=== PATIENT | male | born 1980 | race Hispanic/Latino ===

== ENCOUNTER 2018-06-09 23:19 | Observation (INO) | payer SELFPAY ==
--- OUTSIDE RECORDS SUMMARY | 2018-06-09 23:21 | XMS REPORT | Clinical Summary ---
:1980 Author Organization [facility] Address [address] [place] [address] Care Team Providers Name Role Phone Asked, No Pcp Primary Care Provider Unavailable Allergies No Known Allergies Medications Medication Sig Dispensed Refills Start Date End Date Status budesonide (RHINOCORT 1 spray into 1 Bottle 3 05/21/2018 06/20/2018 Active ALLERGY) 32 each nostril mcg/actuation nasal daily for 30 spray days. oxymetazoline (AFRIN) 2 sprays into 10 mL 0 05/21/2018 05/24/2018 0.05 % nasal spray each nostril 2 (two) times a day for 3 days. Active Problems Problem Noted Date Snoring 05/21/2018 Nasal obstruction 05/21/2018 Obstructive sleep apnea 05/21/2018 Encounters Date Type Specialty Care Team Description 05/21/2018 Office Visit Otolaryngology Vineet Monte MD Snoring ( Primary Dx); Nasal obstruction; Obstructive sleep apnea after 06/08/2017 Social History Tobacco Use Types Packs/Day Years Used Date Never Smoker Smokeless Tobacco: Never Used Alcohol Use Drinks/Week oz/Week Comments Yes Sex Assigned at Date Recorded Not on file Job Start Date Occupation Industry Not on file Not on file Not on file Travel History Travel Start Travel End No recent travel history available. Last Filed Vital Signs Vital Sign Reading Time Taken Blood Pressure 123/85 05/21/2018 10:13 AM [employer] Pulse 94 05/21/2018 10:13 AM [employer] Temperature - - Respiratory Rate - - Oxygen Saturation - - Inhaled Oxygen Concentration - - Weight 125 kg (275 lb 6.4 oz) 05/21/2018 10:13 AM [employer] Height 167.6 cm (5' 6") 05/21/2018 10:13 AM [employer] Body Mass Index 44.45 05/21/2018 10:13 AM [employer] Plan of Treatment Health Maintenance Due Date Last Done Comments INFLUENZA VACCINE 11/07/2017 Results Not on fileafter 06/08/2017 Advance Directives Patient has advance care planning documents on file. For more information, please contact:Esau Steele[address] [facility] [place] [address]
[2018-06-10] MEDS ORDERED: MAGNE/ALUM HYDROXD 30 ML UCUP ONE (00:38)
[2018-06-10] MEDS ORDERED: LIDOCAINE VISCOUS 2% SOLN 15 ML UDC ONE (00:38)
[2018-06-10] MEDS ORDERED: ONDANSETRON 4 MG/2 ML VIAL ONE (00:38)
[2018-06-10] MEDS ORDERED: FAMOTIDINE 20 MG/2 ML VIAL IV ONE (00:38)
[2018-06-10] MEDS ORDERED: NA CHLORIDE 0.9% 1,000 ML ONE ×3 (00:39→04:21)
[2018-06-10 00:56] LABS: Absolute Lymphocytes (CBC) 0.7 K/uL (0.7-4.9); Absolute Monocytes 1.1 K/uL (0.1-1.3); Absolute Neutrophil 19.2 K/uL (1.8-8.0); Basophils % 0.1 % (0-1.3); Eosinophils % 0.4 % (0-4.4); Lymphocytes % 3.4 % (15.3-44.8); MPV 10.2 fL (7.6-11.3); Monocytes % 5.1 % (3.3-12.3); RBC Red Blood Cell Count 6.55 M/uL (4.33-5.43)
[2018-06-10 01:07] LABS: Bilirubin Direct 0.1 mg/dL (0-0.2); Bilirubin Total 0.4 mg/dL (0.2-1.0); Potassium 3.6 mmol/L (3.5-5.1); Protein, Total 8.5 g/dL (6.4-8.2)
[2018-06-10 03:11] LABS: Blood Morphology Comment NOT SEEN (NOT SEEN); Platelet Estimate ADEQ
--- NOTE | 2018-06-10 03:40 | EDPHYS ---
Physician Documentation [facility] Name: Reg Silva Age: 37 yrs Sex: Male : 1980 Arrival Date: 06/09/2018 Time: 23:19 Bed 15 Private MD: ED Physician Kvng Wang HPI: 06/10 00:05 This 37 yrs old Male presents to ER via Ambulatory with complaints of cp Abdominal Pain, Nausea/Vomiting. 00:05 The patient presents with abdominal pain in the epigastric area. Onset: The cp symptoms/episode began/occurred suddenly, today. The symptoms do not radiate. The symptoms are described as constant. Pain started shortly after eating tonight. 00:05 Associated signs and symptoms: Pertinent positives: 4 episodes of vomiting and 3 cp episodes of diarrhea, Pertinent negatives: blood in stools, fever. Historical: - Allergies: 06/09 23:41 No Known Allergies; jd3 - Home Meds: 23:41 None [Active]; jd3 - PMHx: 23:41 Sleep Apnea; jd3 - PSHx: 23:41 None; jd3 - Immunization history:: Adult Immunizations up to date. - Social history:: Smoking status: Patient/guardian denies using tobacco. - Ebola Screening: : Patient negative for fever greater than or equal to 101.5 degrees Fahrenheit, and additional compatible Ebola Virus Disease symptoms. ROS: 06/10 00:10 Constitutional: Negative for body aches, chills, fever, poor PO intake. cp 00:10 Eyes: Negative for injury, pain, redness, and discharge. cp 00:10 ENT: Negative for drainage from ear(s), ear pain, sore throat, difficulty swallowing, difficulty handling secretions. 00:10 Cardiovascular: Negative for chest pain, edema, palpitations. 00:10 Respiratory: Negative for cough, shortness of breath, wheezing. 00:10 Abdomen/GI: Positive for abdominal pain, nausea and vomiting, diarrhea, Negative for constipation, hematemesis, black/tarry stool, rectal bleeding. 00:10 Back: Negative for radiated pain. 00:10 : Negative for urinary symptoms, testicular pain 00:10 Skin: Negative for cellulitis, rash. 00:10 Neuro: Negative for altered mental status, headache, weakness. 00:10 All other systems are negative. Exam: 00:15 Constitutional: The patient appears in no acute distress, alert, awake, non-toxic, well cp developed, well nourished. 00:15 Head/Face: Normocephalic, atraumatic. cp 00:15 Eyes: Periorbital structures: appear normal, Conjunctiva: normal, no exudate, no injection, Sclera: no appreciated abnormality, Lids and lashes: appear normal, bilaterally. 00:15 ENT: External ear(s): are unremarkable, Nose: is normal, Mouth: Lips: moist, Oral mucosa: pink and intact, moist, Posterior pharynx: is normal, airway is patent, no erythema, no exudate. 00:15 Chest/axilla: Inspection: normal, Palpation: is normal, no crepitus, no tenderness. 00:15 Cardiovascular: Rate: tachycardic, Rhythm: regular. 00:15 Respiratory: the patient does not display signs of respiratory distress, Respirations: normal, no use of accessory muscles, no retractions, no splinting, no tachypnea, labored breathing, is not present, Breath sounds: are clear throughout, no decreased breath sounds, no stridor, no wheezing. 00:15 Abdomen/GI: Inspection: obese Bowel sounds: active, all quadrants, Palpation: soft, in all quadrants, mild abdominal tenderness, in the right upper quadrant, moderate abdominal tenderness, in the epigastric area, rebound tenderness, is not appreciated, voluntary guarding, is elicited in the epigastric area. 00:15 Back: pain, is absent, ROM is normal. 00:15 Skin: cellulitis, is not appreciated, no rash present. Vital Signs: 06/09 23:47 BP 128 / 88; Pulse 107; Resp 19 S; Temp 97.5(O); Pulse Ox 94% on R/A; Weight 129.27 kg jd3 (R); Height 5 ft. 6 in. (167.64 cm) (R); Pain 10/10; 06/10 00:40 BP 115 / 88; Pulse 117; Resp 18 S; Pulse Ox 97% on R/A; jd3 01:41 BP 97 / 78; Pulse 106; Resp 17 S; Pulse Ox 97% on R/A; jd3 02:42 BP 110 / 84; Pulse 108; Resp 15 S; Pulse Ox 95% on R/A; jd3 04:45 BP 132 / 89; Pulse 101; Resp 17 S; Pulse Ox 99% on R/A; jd3 07:45 BP 127 / 74; Pulse 96; Resp 16; Temp 98.0(O); Pulse Ox 98% on R/A; Pain 0/10; ls4 06/09 23:47 Body Mass Index 46.00 (129.27 kg, 167.64 cm) jd3 MDM: 06/09 23:35 Patient medically screened. cp 06/10 00:25 Differential diagnosis: appendicitis, bowel obstruction, cholecystitis, Cholelithiasis, cp gastritis, pancreatitis, Peptic Ulcer Disease, Perf. Duodenal Ulcer, Perf. Gastric Ulcer. 03:40 Data reviewed: vital signs, nurses notes. selena 06/10 00:03 Order name: Basic Metabolic Panel; Complete Time: 01:19 cp 06/10 01:19 Interpretation: Normal except: GLUC 160; GFR 67. cp 06/10 00:03 Order name: CBC with Diff; Complete Time: 03:32 cp 06/10 01:20 Interpretation: Normal except: WBC 21.2; RBC 6.55; HCT 53.0; MCH 26.3; SHAYNE% 91.0; LYM% cp 3.4; NEUT A 19.2. 06/10 00:03 Order name: Creatinine for Radiology; Complete Time: 01:19 cp 06/10 00:03 Order name: Hepatic Function; Complete Time: 01:19 cp 06/10 01:19 Interpretation: Normal except: ALK 131; TP 8.5; GLOB 4.5; A/G 0.9. cp 06/10 00:03 Order name: Lipase; Complete Time: 01:19 cp 06/10 01:20 Order name: Manual Differential; Complete Time: 03:32 EDMS 06/10 04:43 Order name: CBC with Automated Diff EDMS 06/10 04:43 Order name: CBC with Automated Diff EDMS 06/10 04:43 Order name: Comprehensive Metabolic Panel EDMS 06/10 04:43 Order name: Comprehensive Metabolic Panel EDMS 06/10 04:43 Order name: Lactate EDMS 06/10 04:43 Order name: Lactate EDMS 06/10 04:43 Order name: Magnesium EDMS 06/10 04:43 Order name: Magnesium EDMS 06/10 00:03 Order name: CT Abd/Pelvis - W/Contrast: no oral contrast cp 06/10 04:43 Order name: Phosphorus EDMS 06/10 04:43 Order name: Phosphorus EDMS 06/10 04:43 Order name: Protime (+INR) EDMS 06/10 04:43 Order name: Protime (+INR) EDMS 06/10 04:43 Order name: PTT, Activated Partial Thromb EDMS 06/10 04:43 Order name: PTT, Activated Partial Thromb EDMS 06/10 04:44 Order name: Gamma Glutamyl Transpeptidase EDMS 06/10 04:44 Order name: Lactate EDMS 06/10 04:45 Order name: Urine Dipstick--Ancillary (enter results); Complete Time: 06:34 mt 06/10 04:47 Order name: Abdomen Exam Limited EDMS 06/10 00:03 Order name: IV Saline Lock; Complete Time: 00:38 cp 06/10 00:03 Order name: Labs collected and sent; Complete Time: 00:38 cp 06/10 00:03 Order name: Urine Dipstick-Ancillary (obtain specimen); Complete Time: 04:44 cp 06/10 04:43 Order name: CONS Physician Consult EDMS 06/10 04:43 Order name: NPO EDMS Administered Medications: 00:37 Drug: GI Cocktail without - (Maalox Suspension 30 ml, Lidocaine Liquid 2 % 15 jd3 ml) Route: PO; 04:58 Follow up: Response: No adverse reaction jd3 00:38 Drug: Pepcid 20 mg Route: IVP; Site: right antecubital; jd3 04:58 Follow up: Response: No adverse reaction jd3 00:38 Drug: Zofran 4 mg Route: IVP; Site: right antecubital; jd3 04:59 Follow up: Response: No adverse reaction jd3 00:38 Drug: NS 0.9% 1000 ml Route: IV; Rate: 1 bolus; Site: right antecubital; jd3 04:22 Follow up: Response: No adverse reaction; IV Status: Completed infusion; IV Intake: rr5 1000ml 02:48 Drug: NS 0.9% 1000 ml Route: IV; Rate: 1 bolus; Site: right antecubital; jd3 05:03 Follow up: Response: No adverse reaction; IV Status: Completed infusion jd3 04:21 Drug: Flagyl 500 mg Volume: 100 ml; Route: IVPB; Rate: 200 ml/hr; Infused Over: 30 rr5 mins; Site: right antecubital; 05:03 Follow up: Response: No adverse reaction; IV Status: Completed infusion jd3 04:58 Drug: Cipro 400 mg Volume: 200 ml; Route: IVPB; Infused Over: 60 mins; Site: right jd3 antecubital; 05:04 Follow up: Response: No adverse reaction; IV Status: Infusion continued upon admission jd3 04:58 Drug: NS 0.9% 1000 ml Route: IV; Rate: 125 ml/hr; Site: right antecubital; jd3 05:03 Follow up: Response: No adverse reaction; IV Status: Infusion continued upon admission jd3 Disposition: 03:39 Co-signature as Attending Physician, Kvng Wang MD I agree with the assessment and selena plan of care. Disposition: 06/10/18 03:39 Hospitalization ordered by Ronan Levy for Observation. Preliminary diagnosis are Abdominal tenderness, Vomiting, Elevated white blood cell count, Bandemia, Cholelithiasis, Left sided colitis - ENTEROCOLITIS. - Bed requested for Telemetry/MedSurg (observation). - Status is Observation. ls4 - Condition is Stable. - Problem is new. - Symptoms have improved. UTI on Admission? No Signatures: Dispatcher [employer] Kate Quintanilla RN RN mw Anderson, Corey, MD MD cha Page, Corey, PA PA cp Davies, Jonathon, RN RN jd3 Sherie Link RN RN ls4 Michael Bull RN RN rr5 Corrections: (The following items were deleted from the chart) 01:20 01:20 Normal except: WBC 21.2; RBC 6.55; HCT 53.0; MCH 26.3; SHAYNE% 91.0; LYM% 3.4. cp cp 03:43 03:39 Hospitalization Ordered by Ronan Levy MD for Observation. Preliminary selena diagnosis is Abdominal tenderness; Vomiting; Elevated white blood cell count; Bandemia. Bed requested for Telemetry/MedSurg (observation). Status is Observation. Condition is Stable. Problem is new. Symptoms have improved. UTI on Admission? No. selena 05:08 03:43 06/10/2018 03:39 Hospitalization Ordered by Ronan Levy MD for Observation. sanchez Preliminary diagnosis is Abdominal tenderness; Vomiting; Elevated white blood cell count; Bandemia; Cholelithiasis; Left sided colitis - ENTEROCOLITIS. Bed requested for Telemetry/MedSurg (observation). Status is Observation. Condition is Stable. Problem is new. Symptoms have improved. UTI on Admission? No. selena 07:50 05:08 06/10/2018 03:39 Hospitalization Ordered by Ronan Levy MD for Observation. ls4 Preliminary diagnosis is Abdominal tenderness; Vomiting; Elevated white blood cell count; Bandemia; Cholelithiasis; Left sided colitis - ENTEROCOLITIS. Bed requested for Telemetry/MedSurg (observation). Status is Observation. Condition is Stable. Problem is new. Symptoms have improved. UTI on Admission? No. mw 08:16 07:50 06/10/2018 03:39 Hospitalization Ordered by Ronan Levy MD for Observation. ls4 Preliminary diagnosis is Abdominal tenderness; Vomiting; Elevated white blood cell count; Bandemia; Cholelithiasis; Left sided colitis - ENTEROCOLITIS. Bed requested for Telemetry/MedSurg (observation). Status is Observation. Condition is Stable. Problem is new. Symptoms have improved. UTI on Admission? No. ls4 06/11 01:18 06/10 00:05 Associated signs and symptoms: Pertinent positives: nausea, vomiting, 1 cp episode of diarrhea, Pertinent negatives: blood in stools, constipation, fever, vomiting blood, cp
--- NOTE | 2018-06-10 03:40 | ER ---
Nurse's Notes [facility] Name: Reg Silva Age: 37 yrs Sex: Male : 1980 Arrival Date: 06/09/2018 Time: 23:19 Bed 15 Private MD: Diagnosis: Abdominal tenderness;Vomiting;Elevated white blood cell count;Bandemia;Cholelithiasis;Left sided colitis-ENTEROCOLITIS Presentation: 06/09 23:39 Presenting complaint: Patient states: "My stomach hurts and I started throwing up jd3 around 2200.". Transition of care: patient was not received from another setting of care. Onset of symptoms was June 09, 2018. Risk Assessment: Do you want to hurt yourself or someone else? Patient reports no desire to harm self or others. Initial Sepsis Screen: Does the patient meet any 2 criteria? No. Patient's initial sepsis screen is negative. Does the patient have a suspected source of infection? No. Patient's initial sepsis screen is negative. Care prior to arrival: None. 23:39 Method Of Arrival: Ambulatory jd3 23:39 Acuity: EMILIANO 3 jd3 Historical: - Allergies: 23:41 No Known Allergies; jd3 - Home Meds: 23:41 None [Active]; jd3 - PMHx: 23:41 Sleep Apnea; jd3 - PSHx: 23:41 None; jd3 - Immunization history:: Adult Immunizations up to date. - Social history:: Smoking status: Patient/guardian denies using tobacco. - Ebola Screening: : Patient negative for fever greater than or equal to 101.5 degrees Fahrenheit, and additional compatible Ebola Virus Disease symptoms. Screenin/04 00:39 Abuse screen: Denies threats or abuse. Nutritional screening: No deficits noted. jd3 Tuberculosis screening: No symptoms or risk factors identified. Fall Risk IV access (20 points). Ambulatory Aid- None/Bed Rest/Nurse Assist (0 pts). Gait- Normal/Bed Rest/Wheelchair (0 pts) Mental Status- Oriented to own ability (0 pts). Total Moser Fall Scale indicates No Risk (0-24 pts). Assessment: 06/09 23:48 General: Appears in no apparent distress. uncomfortable, Behavior is cooperative, jd3 appropriate for age, anxious. Pain: Complains of pain in abdomen Quality of pain is described as aching. Pain:. Neuro: Level of Consciousness is awake, alert, obeys commands, Oriented to person, place, time, situation, Appropriate for age. Cardiovascular: Capillary refill < 3 seconds Patient's skin is warm and dry. Respiratory: Airway is patent Respiratory effort is even, unlabored, Respiratory pattern is regular, symmetrical, Breath sounds are clear bilaterally. GI: Abdomen is round Bowel sounds present X 4 quads. Abd is soft and non tender X 4 quads. Reports nausea, vomiting. : No signs and/or symptoms were reported regarding the genitourinary system. EENT: No signs and/or symptoms were reported regarding the EENT system. Derm: Skin is intact, Skin is dry, Skin is normal, Skin temperature is warm. Musculoskeletal: Circulation, motion, and sensation intact. Range of motion: intact in all extremities. 06/10 00:40 Reassessment: Patient appears in no apparent distress at this time. No changes from jd3 previously documented assessment. Patient and/or family updated on plan of care and expected duration. Pain level reassessed. Patient is alert, oriented x 3, equal unlabored respirations, skin warm/dry/pink. 01:40 Reassessment: Patient appears in no apparent distress at this time. Patient and/or jd3 family updated on plan of care and expected duration. Pain level reassessed. Patient is alert, oriented x 3, equal unlabored respirations, skin warm/dry/pink. Patient states feeling better. 02:42 Reassessment: Patient appears in no apparent distress at this time. Patient and/or jd3 family updated on plan of care and expected duration. Pain level reassessed. Patient is alert, oriented x 3, equal unlabored respirations, skin warm/dry/pink. 04:44 Reassessment: Patient appears in no apparent distress at this time. Patient and/or jd3 family updated on plan of care and expected duration. Pain level reassessed. Patient is alert, oriented x 3, equal unlabored respirations, skin warm/dry/pink. 05:05 Reassessment: Patient appears in no apparent distress at this time. No changes from jd3 previously documented assessment. Patient and/or family updated on plan of care and expected duration. Pain level reassessed. Patient is alert, oriented x 3, equal unlabored respirations, skin warm/dry/pink. charting continued in [facility]. Vital Signs: 06/09 23:47 BP 128 / 88; Pulse 107; Resp 19 S; Temp 97.5(O); Pulse Ox 94% on R/A; Weight 129.27 kg jd3 (R); Height 5 ft. 6 in. (167.64 cm) (R); Pain 10/10; 06/10 00:40 BP 115 / 88; Pulse 117; Resp 18 S; Pulse Ox 97% on R/A; jd3 01:41 BP 97 / 78; Pulse 106; Resp 17 S; Pulse Ox 97% on R/A; jd3 02:42 BP 110 / 84; Pulse 108; Resp 15 S; Pulse Ox 95% on R/A; jd3 04:45 BP 132 / 89; Pulse 101; Resp 17 S; Pulse Ox 99% on R/A; jd3 07:45 BP 127 / 74; Pulse 96; Resp 16; Temp 98.0(O); Pulse Ox 98% on R/A; Pain 0/10; ls4 06/09 23:47 Body Mass Index 46.00 (129.27 kg, 167.64 cm) j ED Course: 06/09 23:19 Patient arrived in ED. am2 23:35 Kvng Sandoval PA is PHCP. cp 23:35 Kvng Wang MD is Attending Physician. cp 23:35 Yogi Stevenson RN is Primary Nurse. jd3 23:40 Triage completed. jd3 23:41 Arm band placed on. jd3 06/10 00:22 Inserted saline lock: 20 gauge in right antecubital area, using aseptic technique. jd3 Blood collected. 00:39 Patient has correct armband on for positive identification. Bed in low position. Call jd3 light in reach. Side rails up X 1. Adult w/ patient. 01:19 Notified Nurse Practitioner and/or Physician Fiscal Specialist of a critical lab result(s), wbc fc of 21.2. 02:[address] via wheelchair. kw1 02:45 CT completed. Patient tolerated procedure well. Patient moved back from CT. kw1 03:17 Notified Nurse Practitioner and/or Physician Fiscal Specialist of a critical lab result(s), 23% jd3 band count. 03:28 CT Abd/Pelvis - W/Contrast: no oral contrast In Process Unspecified. EDMS 03:34 Ronan Levy MD is Hospitalizing Provider. selena 05:05 No provider procedures requiring assistance completed. Patient admitted, IV remains in jd3 place. Administered Medications: 00:37 Drug: GI Cocktail without - (Maalox Suspension 30 ml, Lidocaine Liquid 2 % 15 jd3 ml) Route: PO; 04:58 Follow up: Response: No adverse reaction jd3 00:38 Drug: Pepcid 20 mg Route: IVP; Site: right antecubital; jd3 04:58 Follow up: Response: No adverse reaction jd3 00:38 Drug: Zofran 4 mg Route: IVP; Site: right antecubital; jd3 04:59 Follow up: Response: No adverse reaction jd3 00:38 Drug: NS 0.9% 1000 ml Route: IV; Rate: 1 bolus; Site: right antecubital; jd3 04:22 Follow up: Response: No adverse reaction; IV Status: Completed infusion; IV Intake: rr5 1000ml 02:48 Drug: NS 0.9% 1000 ml Route: IV; Rate: 1 bolus; Site: right antecubital; jd3 05:03 Follow up: Response: No adverse reaction; IV Status: Completed infusion jd3 04:21 Drug: Flagyl 500 mg Volume: 100 ml; Route: IVPB; Rate: 200 ml/hr; Infused Over: 30 rr5 mins; Site: right antecubital; 05:03 Follow up: Response: No adverse reaction; IV Status: Completed infusion jd3 04:58 Drug: Cipro 400 mg Volume: 200 ml; Route: IVPB; Infused Over: 60 mins; Site: right jd3 antecubital; 05:04 Follow up: Response: No adverse reaction; IV Status: Infusion continued upon admission jd3 04:58 Drug: NS 0.9% 1000 ml Route: IV; Rate: 125 ml/hr; Site: right antecubital; jd3 05:03 Follow up: Response: No adverse reaction; IV Status: Infusion continued upon admission jd3 Intake: 04:22 IV: 1000ml; Total: 1000ml. rr5 Outcome: 03:39 Decision to Hospitalize by Provider. selena 05:05 Admitted to ER Hold. Please see [facility] for further documentation. jd3 05:05 Condition: stable 05:05 Instructed on the need for admit, Demonstrated understanding of instructions. 07:57 Admitted to Med/surg accompanied by tech, via wheelchair, room 220, with chart, Report ls4 called to ALISON 08:16 Patient left the ED. ls4 Signatures: Dispatcher [employer] EDKvng Howard MD MD cha Chretien, Felicia, RN RN fc Kvng Sandoval PA PA cp Moreno, Amanda am2 Yogi Stevenson RN RN jd3 Ivana Levin 1 Sherie Link RN RN ls4 Michael Bull, RN RN rr5 Corrections: (The following items were deleted from the chart) 05:05 01:40 Reassessment: Patient appears in no apparent distress at this time. Patient jd3 and/or family updated on plan of care and expected duration. Pain level reassessed. Patient is alert, oriented x 3, equal unlabored respirations, skin warm/dry/pink. jd3 07:10 05:05 Reassessment: Patient appears in no apparent distress at this time. No changes jd3 from previously documented assessment. Patient and/or family updated on plan of care and expected duration. Pain level reassessed. Patient is alert, oriented x 3, equal unlabored respirations, skin warm/dry/pink. jd3
[2018-06-10] MEDS ORDERED: METRONIDAZOLE 500mg IVPB 500 MG/100 ML BAG IV ONE (04:21)
[2018-06-10] MEDS ORDERED: CIPROFLOXACIN 400mg IV 400 MG/200 ML BAG IV ONE (04:21)
[2018-06-10] MEDS ORDERED: ONDANSETRON 4 MG/2 ML VIAL IV PRN (04:31)
[2018-06-10] MEDS ORDERED: ALPRAZOLAM 0.25 MG TABLET PO PRN (04:31)
[2018-06-10] MEDS ORDERED: ACETAMINOPHEN 500 MG TAB PO PRN (04:31)
[2018-06-10] MEDS ORDERED: MAGNESIUM HYDROXIDE 8% 30 ML PO PRN (04:31)
[2018-06-10] MEDS: NA CHLORIDE 0.9% 1,000 ML IV SCH ×4 (05:00→20:32)
[2018-06-10 05:58] LABS: Urine Blood TRACE (NEG); Urine Glucose NEGATIVE (NEG); Urine Protein TRACE (NEG); Urine pH 5.5 (5.0-7.0)
[2018-06-10] MEDS: Levofloxacin500mg IV 500 MG/100 ML BAG IV SCH (06:30)
[2018-06-10 06:48] LABS: Absolute Lymphocytes (CBC) 0.7 K/uL (0.7-4.9); Absolute Monocytes 0.4 K/uL (0.1-1.3); Absolute Neutrophil 11.6 K/uL (1.8-8.0); Basophils % 0.2 % (0-1.3); Eosinophils % 0.2 % (0-4.4); Hematocrit 44.8 % (39.6-49.0); Lymphocytes % 5.2 % (15.3-44.8); MPV 9.8 fL (7.6-11.3); Monocytes % 3.4 % (3.3-12.3); RBC Red Blood Cell Count 5.57 M/uL (4.33-5.43)
[2018-06-10 06:56] LABS: Protime INR 1.08
[2018-06-10 07:08] LABS: Albumin 3.2 g/dL (3.4-5.0); Bilirubin Total 0.4 mg/dL (0.2-1.0); Magnesium 1.9 mg/dL (1.8-2.4); Phosphorus 2.9 mg/dL (2.5-4.9); Potassium 3.9 mmol/L (3.5-5.1); Protein, Total 6.7 g/dL (6.4-8.2)
--- NOTE | 2018-06-10 07:44 | RAD REPORT ---
EXAM DESCRIPTION: US - Abdomen Exam Limited - 06/10/2018 6:49 am CLINICAL HISTORY: Abdominal pain. COMPARISON: June 10, 2018 cat scan FINDINGS: A large gallstone is present. Smaller gallstones are noted. Gallbladder contains a moderat e amount of sludge. The gallbladder wall is upper limits normal thickness The biliary tree is normal caliber. IMPRESSION: Cholelithiasis and gallbladder sludge
[2018-06-10] MEDS ORDERED: INFLUENZA VACCINE (for 3y+) 0.5 ML DOSE IMVAC ONE (08:00)
[2018-06-10] MEDS: ENOXAPARIN 40 MG/0.4 ML SQ SCH ×2 (09:00→10:50)
--- NOTE | 2018-06-10 09:20 | P.HP ---
Certification for Inpatient Patient admitted to: Observation With expected LOS: <2 Midnights Patient will require the following post-hospital care: None Practitioner: I am a practitioner with admitting privileges, knowledge of patient current condition, hospital course, and medical plan of care. Services: Services provided to patient in accordance with Admission requirements found in Title 42 Section 412.3 of the Code of Federal Regulations Patient History Date of Service: 06/10/18 Reason for admission: Abdominal pain History of Present Illness: Patient is a 37-year-old gentleman came into the hospital with abdominal pain. Patient also had nausea and vomiting on 3 different occasions while at home. He also has some diarrhea. His abdomen was hurting more severely so he came into the hospital for further evaluation. Pain was mainly in the right upper quadrant. Patient was evaluated in the emergency room and CT revealed cholelithiasis with no evidence of cholecystitis. Decision was made to admit the patient to the hospital for further workup. Allergies No Known Allergies Allergy (Unverified 06/10/18 05:08) Home Medications: NK [No Home Meds] 06/10/18 - Past Medical/Surgical History Has patient received pneumonia vaccine in the past: No Diabetic: No -: sleep apnea Past Surgical History: Patient denies surgical history - Family History Father Family History: Reviewed- Non-Contributory - Social History Smoking Status: Never smoker Alcohol use: No CD- Drugs: No Caffeine use: No Place of Residence: Home Review of Systems 10-point ROS is otherwise unremarkable Physical Examination - Vital Signs Temperature: 98.0 F Blood Pressure: 127/74 Pulse: 96 Respirations: 16 Pulse Ox (%): 98 - Physical Exam General: Alert, In no apparent distress, Oriented x3 HEENT: Atraumatic, PERRLA, Mucous membr. moist/pink, EOMI, Sclerae nonicteric Neck: Supple, 2+ carotid pulse no bruit, No LAD, Without JVD or thyroid abnormality Respiratory: Clear to auscultation bilaterally, Normal air movement Cardiovascular: Regular rate/rhythm, Normal S1 S2 Gastrointestinal: Normal bowel sounds, Soft and benign, Non-distended, Tenderness (Right upper quadrant) Musculoskeletal: No clubbing, No swelling, No tenderness Integumentary: No rashes Neurological: Normal gait, Normal speech, Normal strength at 5/5 x4 extr, Normal tone, Sensation intact, Cranial nerves 3-12 intact, Normal affect Lymphatics: No axilla or inguinal lymphadenopathy - Studies Laboratory Data (last 24 hrs) 06/10/18 00:22: Creatinine 1.18 06/10/18 00:22: WBC 21.2 H*, Hgb 17.2, Hct 53.0 H, Plt Count 290 06/10/18 00:22: Sodium 141, Potassium 3.6, BUN 17, Creatinine 1.22, Glucose 160 H, Total Bilirubin 0.4, AST 17, ALT 41, Alkaline Phosphatase 131 H, Lipase 89 Assessment & Plan - Problems (Diagnosis) (1) Abdominal pain Current Visit: Yes Status: Acute (2) Cholelithiasis Current Visit: Yes Status: Acute (3) Viral gastroenteritis Current Visit: Yes Status: Acute - Plan 1. Continue with IV hydration 2. Continue with IV antibiotics 3. Continue with pain control 4. NPO 5. General surgery consultation; abdominal ultrasound pending 6. Serial H&H, and we will monitor CBC, BMP, LFTs and lipase along with electrolytes. 7. GI and DVT prophylaxis Discharge Plan: Home Plan to discharge in: 48 Hours - Advance Directives Does patient have a Living Will: No Does patient have a Durable POA for Healthcare: No - Code Status/Comfort Care Code Status Assessed: Yes Code Status: Full Code Critical Care: No Time Spent Managing PTS Care (In Minutes): 45
[2018-06-10] MEDS: METRONIDAZOLE 500mg IVPB 500 MG/100 ML BAG IV SCH ×2 (12:49→20:31)
--- NOTE | 2018-06-10 12:51 | RAD REPORT ---
EXAM DESCRIPTION: CT - Abdomen Pelvis W Contrast - 06/10/2018 4:08 am CLINICAL HISTORY: The patient is 37 years old and is Male; ABD PAIN TECHNIQUE: Axial computed tomography images of the abdomen and pelvis with intravenous contrast. S agittal and coronal reformatted images were created and reviewed. This CT exam was performed using one or more of the following dose reduction techniques: automated exposure control, adjustment of t he mA and/or kV according to patient size, and/or use of iterative reconstruction technique. COMPARISON: No relevant prior studies available. FINDINGS: Lung bases: Unremarkable. No mass. No consolidation. ABDOMEN: Liver: There is a diffuse decrease in hepatic parenchymal density, consistent with fatty infiltr ation. Gallbladder and bile ducts: Calcified gallstone is present within the gallbladder. There is no d uctal dilatation. Pancreas: Mild fatty infiltration of the pancreas is noted. Spleen: Unremarkable. Adrenals: Unremarkable. No mass. Kidneys and ureters: Unremarkable. No solid mass. No hydronephrosis. Stomach and bowel: The stomach is fluid-filled. The small bowel is normal in caliber. The majori ty of small bowel is fluid-filled as is the colon. There is no mucosal thickening or evidence of buffy l obstruction. PELVIS: Appendix: The appendix is normal in caliber without surrounding inflammation. Bladder: Unremarkable. No mass. Reproductive: Unremarkable as visualized. ABDOMEN and PELVIS: Intraperitoneal space: Unremarkable. No free air. No significant fluid collection. Bones/joints: Mild degenerative change at L5-S1 is present. Soft tissues: The soft tissues are normal. Vasculature: Unremarkable. No abdominal aortic aneurysm. Lymph nodes: Unremarkable. No enlarged lymph nodes. IMPRESSION: 1. Cholelithiasis without CT evidence to suggest cholecystitis. 2. Fluid-filled small bowel and colon. Findings are nonspecific but could be secondary to very mild enterocolitis. No bowel obstruction. Electronically signed by: Rika Mccall MD 06/10/2018 3:33 AM [employer] Due to temporary technical issues with the PACS/Fluency reporting system, reports are being signed by the in house radiologist as a courtesy to ensure prompt reporting. The interpreting radiologist is f ully responsible for the content of the report.
--- NOTE | 2018-06-10 15:15 | CON ---
Date of Consultation: 06/10/2018 Brief History Of Present Illness: The patient is a 37-year-old gentleman who comes to the ospital with abdominal pain beginning approximately [id number]-zhdd days ago. He states that he had 3 d ifferent episodes of the pain at home associated with nausea and vomiting. On these 3 episodes, he h as had diarrhea associated as well. The pain was severe and was in the epigastric region. No radiat ion to the right upper quadrant, left upper quadrant, to the back. It was located mainly in the epig astrium. He was evaluated in the emergency room and admitted at that time. Past Medical History: Denies any past medical history other than obstructive sleep apnea. Past Surgical History: Negative. Family History: Reviewed, noncontributory. Allergies: NO KNOWN DRUG ALLERGIES. Medications: At home, none. Social History: He denies smoking, alcohol, or recreational drug use. Review of Systems: A 10-point review of systems other than HPI, . Physical Examination: Vital Signs: At the time of my examination, BMI is 46.0. His blood pressure was 127/74, pulse 96, r espiratory rate 16, temperature 98.0. General: He is awake, alert, and oriented. Psychiatric: He is appropriate and conversive. HEENT: Normocephalic. Sclerae anicteric. Mucous membranes are moist. Oropharynx is clear. Neck: Supple. No JVD. Chest: Normal expansion and excursion. Cardiovascular: Regular rate and rhythm. Pulmonary: Clear to auscultation bilaterally. Abdomen: Soft, nontender, nondistended. No rebound. No guarding. No focal peritonitis. Negative Cristnia sign. Negative psoas sign. No hernias appreciated. Abdomen: Obese generally. Extremities: No clubbing, cyanosis, or edema. Skin: Warm and dry. Laboratory Data: Reveals a white blood count of 12.8, hemoglobin 14.7, hematocrit 44.8, platelet cou nt 250, neutrophils are 91%, band neutrophils are 23%. His PT 12.7, INR 1.08, PTT is 23.5. His sodi um 142, potassium 3.9, chloride 108, carbon dioxide 27, BUN 18, creatinine is 1.0, glucose is 143, la ctic acid 1.2, calcium 7.8, phosphorus is 2.9, magnesium 1.9, total bilirubin 0.4, direct component 0 .1, AST 16, ALT 33, alkaline phosphatase is 96, lipase is 89. He had imaging performed, which includ ed an abdominal ultrasound, officially read as cholelithiasis and gallbladder sludge. There is a lar ge gallstone present. Small gallstones are noted. Gallbladder contains a moderate amount of sludge. The gallbladder wall is upper limits of normal. The biliary tree is normal in caliber. He had a C T scan performed of the abdomen and pelvis, which was officially read. I am unable to get our offici al dictation; however, the marker.to system was read as cholelithiasis without CT evidence to suggest cholecystitis, fluid-filled small bowel and colon. Findings are nonspecific, could be secondary to a very mild enterocolitis. No bowel obstruction. Assessment And Plan: This is a 37-year-old male who comes in with signs and symptoms of gastroenteri tis. 1.IV fluid hydration. 2.Antibiotic coverage. 3.Serial abdominal exams. 4.Recommend starting p.o. diet with clear liquids and advanced as tolerated. The patient does not h ave a surgical abdomen at this time and no evidence of cholecystitis on clinical and physical examina tion. 5.Continue medical management. Thank you for this interesting consult. JAVIER Voice ID: [id number] Report ID: [id number]
[2018-06-10] MEDS ORDERED: SODIUM CHLORIDE 0.9% 10ML INJ IV PRN (16:09)
--- NOTE | 2018-06-10 16:11 | P.PN ---
Subjective Date of Service: 06/10/18 Primary Care Provider: None Chief Complaint: Abdominal pain Subjective: Improving Physical Examination - Vital Signs Temperature: 97.5 F Blood Pressure: 124/69 Pulse: 81 Respirations: 20 Pulse Ox (%): 94 - Physical Exam General: Alert, In no apparent distress, Oriented x3, Cooperative HEENT: Atraumatic Neck: Supple Respiratory: Clear to auscultation bilaterally, Normal air movement Cardiovascular: Normal pulses, Regular rate/rhythm Gastrointestinal: Normal bowel sounds, Soft and benign, Non-distended, No masses , No rebound, No guarding, Tenderness (Less pain to the abdomen) Musculoskeletal: No erythema, No tenderness, No warmth Integumentary: No erythema, No warmth, No cyanosis Neurological: Normal speech, Normal strength at 5/5 x4 extr, Normal tone, Normal affect - Studies Laboratory Data (last 24 hrs) 06/10/18 00:22: Creatinine 1.18 06/10/18 00:22: WBC 21.2 H*, Hgb 17.2, Hct 53.0 H, Plt Count 290 06/10/18 00:22: Sodium 141, Potassium 3.6, BUN 17, Creatinine 1.22, Glucose 160 H, Total Bilirubin 0.4, AST 17, ALT 41, Alkaline Phosphatase 131 H, Lipase 89 Medications List Reviewed: Yes Assessment & Plan Discharge Plan: Home Plan to discharge in: 24 Hours Physician Review Additional Text: Impression: Abdominal pain, nausea and vomiting secondary to gastroenteritis with noted cholelithiasis without cholecystitis Mild dehydration Plan: Will monitor the patient closely. Case discussed with surgery. No surgical intervention required at this time. Continue IV antibiotic therapy. Will provide medication-PPI. Will advanced as tolerated. Encourage ambulation. Anticipate discharge in the next 24 hr with improvement. Will monitor closely. Time Spent Managing Pts Care (In Minutes): 55
--- NOTE | 2018-06-10 16:30 | CON ---
DICTATION ENDS HERE JAYCEE/ETHAN Voice ID: [id number] Report ID: [id number]
[2018-06-10] MEDS ORDERED: ENOXAPARIN 40 MG/0.4 ML SQ SCH (17:00)
[2018-06-10] MEDS ORDERED: POTASSIUM 25 MEQ EFFERV TAB PO ONE (18:38)
[2018-06-10 20:41] LABS: Urine Appearance CLEAR; Urine Bilirubin NEGATIVE (NEG); Urine Blood NEGATIVE (NEG); Urine Color YELLOW; Urine Glucose NEGATIVE (NEG); Urine Protein NEGATIVE (NEG); Urine Specific Gravity 1.025 (1.005-1.030); Urine pH 5.5 (5.0-7.0)
[2018-06-10 20:52] LABS: Urine Microscopic Reflex ORDER UMIC
[2018-06-10 21:11] LABS: Urine Bacteria <20 /HPF (NONE SEEN); Urine Culture Reflex Order REFLEXED; Urine RBC NONE SEEN /HPF (NONE SEEN)
[2018-06-11] MEDS: METRONIDAZOLE 500mg IVPB 500 MG/100 ML BAG IV SCH ×2 (03:44→12:00)
[2018-06-11] MEDS: Levofloxacin500mg IV 500 MG/100 ML BAG IV SCH (05:42)
[2018-06-11 06:03] LABS: Absolute Lymphocytes (CBC) 1.5 K/uL (0.7-4.9); Absolute Monocytes 0.4 K/uL (0.1-1.3); Absolute Neutrophil 5.2 K/uL (1.8-8.0); Basophils % 0.1 % (0-1.3); Eosinophils % 1.7 % (0-4.4); Hematocrit 41.7 % (39.6-49.0); Lymphocytes % 21.1 % (15.3-44.8); MPV 9.4 fL (7.6-11.3); Monocytes % 5.4 % (3.3-12.3); RBC Red Blood Cell Count 5.18 M/uL (4.33-5.43)
[2018-06-11 06:23] LABS: Albumin 3.1 g/dL (3.4-5.0); Bilirubin Total 0.4 mg/dL (0.2-1.0); Magnesium 1.9 mg/dL (1.8-2.4); Potassium 3.6 mmol/L (3.5-5.1); Protein, Total 6.6 g/dL (6.4-8.2)
[2018-06-11] MEDS ORDERED: POTASSIUM 25 MEQ EFFERV TAB PO ONE (07:00)
[2018-06-11] MEDS ORDERED: PANTOPRAZOLE 40 MG INJ IVP SCH (09:00)
--- NOTE | 2018-06-11 10:44 | P.DS ---
Admission Date: 06/10/18 Discharge Date: 06/11/18 Primary Care Provider: None Disposition: ROUTINE DISCHARGE Discharge Condition: GOOD Reason for Admission: Abdominal pain Consultations: Surgery-Dr. Glover Procedures: CT scan: COMPARISON: No relevant prior studies available. FINDINGS: Lung bases: Unremarkable. No mass. No consolidation. ABDOMEN: Liver: There is a diffuse decrease in hepatic parenchymal density, consistent with fatty infiltration. Gallbladder and bile ducts: Calcified gallstone is present within the gallbladder. There is no ductal dilatation. Pancreas: Mild fatty infiltration of the pancreas is noted. Spleen: Unremarkable. Adrenals: Unremarkable. No mass. Kidneys and ureters: Unremarkable. No solid mass. No hydronephrosis. Stomach and bowel: The stomach is fluid-filled. The small bowel is normal in caliber. The majority of small bowel is fluid-filled as is the colon. There is no mucosal thickening or evidence of bowel obstruction. PELVIS: Appendix: The appendix is normal in caliber without surrounding inflammation. Bladder: Unremarkable. No mass. Reproductive: Unremarkable as visualized. ABDOMEN and PELVIS: Intraperitoneal space: Unremarkable. No free air. No significant fluid collection. Bones/joints: Mild degenerative change at L5-S1 is present. Soft tissues: The soft tissues are normal. Vasculature: Unremarkable. No abdominal aortic aneurysm. Lymph nodes: Unremarkable. No enlarged lymph nodes. IMPRESSION: 1. Cholelithiasis without CT evidence to suggest cholecystitis. 2. Fluid-filled small bowel and colon. Findings are nonspecific but could be secondary to very mild enterocolitis. No bowel obstruction. ABUS: COMPARISON: June 10, 2018 cat scan FINDINGS: A large gallstone is present. Smaller gallstones are noted. Gallbladder contains a moderate amount of sludge. The gallbladder wall is upper limits normal thickness The biliary tree is normal caliber. IMPRESSION: Cholelithiasis and gallbladder sludge Medical Problem List: Abdominal pain, nausea and vomiting secondary to enterocolitis with noted cholelithiasis without cholecystitis Mild dehydration Brief History of Present Illness: 37-year-old male presented to emergency room with abdominal pain, nausea and vomiting. CT scan revealed mild enterocolitis. Patient admitted for further evaluation and treatment. Hospital Course: Patient presented with abdominal pain, nausea and vomiting secondary to enterocolitis. Patient was admitted for IV fluid hydration and antibiotic therapy. Patient seen and evaluated by surgery. Abdominal ultrasound showed cholelithiasis without cholecystitis. No surgical intervention was required. At discharge patient will continue with a GI soft diet. Patient will also continue with Cipro 500 mg 1 pill twice daily and Flagyl 500 mg 3 times a day for 7 days. Recommend to follow up with surgery in 1-2 weeks to follow up this hospitalization as the patient may require cholecystectomy in the future. Lifestyle changes and education on cholelithiasis will be provided. Vital Signs/Physical Exam: Temp Pulse Resp BP Pulse Ox 97.1 F 74 20 152/90 H 92 06/11/18 08:00 06/11/18 08:00 06/11/18 08:00 06/11/18 08:00 06/11/18 08:00 General: Alert, In no apparent distress, Oriented x3, Cooperative HEENT: Atraumatic Neck: Supple Respiratory: Clear to auscultation bilaterally, Normal air movement Cardiovascular: Normal pulses, Regular rate/rhythm Gastrointestinal: Normal bowel sounds, Soft and benign, Non-distended, No tenderness, No masses, No rebound, No guarding Musculoskeletal: No erythema, No tenderness, No warmth Integumentary: No tenderness/swelling, No erythema, No warmth, No cyanosis Neurological: Normal speech, Normal strength at 5/5 x4 extr, Normal tone, Normal affect Laboratory Data at Discharge: WBC 7.3 K/uL (4.3-10.9) D 06/11/18 05:47 Hgb 13.7 g/dL (13.6-17.9) 06/11/18 05:47 Hct 41.7 % (39.6-49.0) 06/11/18 05:47 Plt Count 215 K/uL (152-406) 06/11/18 05:47 PT 12.7 SECONDS (9.5-12.5) H 06/10/18 06:38 INR 1.08 06/10/18 06:38 APTT 23.5 SECONDS (24.3-36.9) L 06/10/18 06:38 Sodium 144 mmol/L (136-145) 06/11/18 05:47 Potassium 3.6 mmol/L (3.5-5.1) 06/11/18 05:47 BUN 12 mg/dL (7-18) 06/11/18 05:47 Creatinine 1.01 mg/dL (0.55-1.3) 06/11/18 05:47 Glucose 123 mg/dL (74-106) H 06/11/18 05:47 Phosphorus 2.9 mg/dL (2.5-4.9) 06/10/18 06:38 Magnesium 1.9 mg/dL (1.8-2.4) 06/11/18 05:47 Total Bilirubin 0.4 mg/dL (0.2-1.0) 06/11/18 05:47 AST 15 U/L (15-37) 06/11/18 05:47 ALT 30 U/L (12-78) 06/11/18 05:47 Alkaline Phosphatase 92 U/L (45-117) 06/11/18 05:47 Lipase 89 U/L (73-393) 06/10/18 00:22 Home Medications: Ciprofloxacin HCl [Cipro 500 MG Tablet] 500 mg PO BID #14 tab 06/11/18 metroNIDAZOLE [Flagyl] 500 mg PO Q8H #21 tablet 06/11/18 New Medications: Ciprofloxacin HCl [Cipro 500 MG Tablet] 500 mg PO BID #14 tab metroNIDAZOLE [Flagyl] 500 mg PO Q8H #21 tablet Patient Discharge Instructions: 1. Patient will establish care with a PCP locally. Information will be provided. 2. Patient presented with abdominal pain, nausea and vomiting secondary to enterocolitis. Patient was admitted for IV fluid hydration and antibiotic therapy. Patient seen and evaluated by surgery. Abdominal ultrasound showed cholelithiasis without cholecystitis. No surgical intervention was required. At discharge patient will continue with a GI soft diet. Patient will also continue with Cipro 500 mg 1 pill twice daily and Flagyl 500 mg 3 times a day for 7 days. Recommend to follow up with surgery in 1-2 weeks to follow up this hospitalization as the patient may require cholecystectomy in the future. Lifestyle changes and education on cholelithiasis will be provided. Diet: AHA Activity: Ad belkis Time spent managing pt's care (in minutes): 55
== END 2018-06-11 13:30 | disposition home or self-care (01) ==
LOC: ER 23:19 → ERHOLD 06-10 05:05 → 2ND 06-10 07:58
PROVIDERS: ADMIT Hospitalist; ATTEND Hospitalist
DX: K52.9 Noninfective gastroenteritis and colitis, unspecified (principal); K80.20 Calculus of gallbladder without cholecystitis without obstruction; E86.0 Dehydration; Z23 Encounter for immunization
CPT/HCPCS: 36415; 74177; 76705; 80048; 80053; 80076; 81003; 81015; 82977; 83605; 83690; 83735; 84100; 85025; 85610; 85730; 87086; 87088; 96361; 96365; 96375; 99285; C9113; G0008; G0378; J0744; J1650; J2405; J7030; Q2035; Q9967